=== PATIENT | female | born 1985 | race Caucasian/White ===

== ENCOUNTER 2017-01-26 23:15 | Emergency (ER) | payer OTHER ==
[~2017-01-26] VITALS: Ht 177.8 cm; Wt 63.5 kg
[2017-01-26 23:19] VITALS: BP 126/76
[2017-01-26] MEDS ORDERED: Morphine Sulfate 4mg/ml Inj IVP ONE (23:30)
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
[2017-01-26] MEDS ORDERED: Ketorolac 30mg Inj IV ONE (23:45)
[2017-01-26] MEDS ORDERED: LORazepam Inj 2mg/ml 1ml IV ONE (23:45)
[2017-01-27 00:01] LABS: BASOPHILS % (AUTO) 1.2 % (0.0-2.0); EOSINOPHILS % (AUTO) 3.6 % (0.0-3.0); LYMPHOCYTES % (AUTO) 43.6 % (20.0-45.0); MEAN CORPUSCULAR HEMOGLOBIN 35.1 PG (27.0-31.0); MEAN CORPUSCULAR HGB CONC 35.3 G/DL (32.0-36.0); MEAN CORPUSCULAR VOLUME 99 FL (80-99); MEAN PLATELET VOLUME 6.5 FL (6.5-10.1); MONOCYTES % (AUTO) 6.1 % (1.0-10.0); NEUTROPHILS % (AUTO) 45.6 % (45.0-75.0); PLATELET COUNT 270 K/UL (150-450); RED BLOOD COUNT 3.93 M/UL (4.20-5.40); RED CELL DISTRIBUTION WIDTH 10.4 % (11.6-14.8); WHITE BLOOD COUNT 6.2 K/UL (4.8-10.8)
[2017-01-27 00:03] LABS: ALANINE AMINOTRANSFERASE 92 U/L (3-33); ALBUMIN/GLOBULIN RATIO 1.5 (1.0-2.7); ANION GAP 16 (5-15); ASPARTATE AMINO TRANSFERASE 127 U/L (5-40); CALCIUM 9.2 mg/dL (8.6-10.2); CARBON DIOXIDE 25 mEQ/L (20-30); CHLORIDE 100 mEQ/L (98-107); CREATININE 0.9 mg/dL (0.5-0.9); GLOMERULAR FILTRATION RATE > 60 mL/min (>60); HEMOLYSIS 6; LIPASE 95 U/L (< 60); POTASSIUM 3.3 mEQ/L (3.4-4.9); SODIUM 141 mEQ/L (135-145); TOTAL PROTEIN 7.5 g/dL (6.6-8.7)
[2017-01-27 00:08] LABS: INR 1.1 (0.9-1.1)
[2017-01-27 00:13] LABS: CKMB < 1.5 ng/mL (< 3.8)
[2017-01-27 01:59] VITALS: BP 121/79
[2017-01-27 03:19] VITALS: BP 110/71
[2017-01-27 04:20] VITALS: BP 101/72
--- NOTE | 2017-01-27 09:20 | Diagnostic Imaging Report ---
Indication: Abdominal pain and trauma. Chest pain. Technique: Continuous helical transaxial imaging of the chest, abdomen and pelvis was obtained from the lung bases to the pubic symphysis during intravenous contrast administration. Multiple phases of enhancement obtained. Coronal 2-D reformats were also obtained. Study obtained in a Siemens sensation [address] Total Dose length Product (DLP): [address] Dose Index Volume (CTDIvol): 8.1x3, 0.2, 64.9, 11.5, 14.6 mGy Comparison: None Findings: CT chest: There is no pneumothorax or evidence of lung contusion or effusion. No abnormal fluid collections are identified. There is a fracture of the right seventh rib. This is in the anterior part of the chest. There is a scoliosis of the thoracic spine demonstrated. In the upper upper epigastric region of the abdomen there is ill-defined subcutaneous soft tissue stranding consistent with a contusion injury. Ill-defined low-attenuation demonstrated within the medial segment of the left lobe of the liver consistent with a laceration of the liver. This is probably best demonstrated on coronal reconstructions for example (image [id number]) there is no subcapsular blood or fluid and no free fluid or air identified. The spleen is normal in attenuation. The pancreas is unremarkable. The kidneys and adrenal glands are unremarkable. Uterus is noted. Bladder is unremarkable. There is a 2 cm right ovarian cyst demonstrated. Impression: Acute liver laceration involving the left lobe. No free fluid or free air or evidence of capsular hematoma. Anterior abdominal wall soft tissue contusion. Thoracolumbar scoliosis. Acute right seventh rib fracture [facility] has communicated the preliminary results to the Emergency Department. Their findings are largely concordant with this report. Critical value communication. Findings were discussed via telephone with Dr. Imer Unger 01/27/17, 02:41. The CT scanner at [facility] is accredited by the [employer] and the scans are performed using dose optimization techniques as appropriate to a performed exam including Automatic Exposure control.
--- NOTE | 2017-01-27 11:20 | Diagnostic Imaging Report ---
Indication: Pain Comparison: None Findings: Two views of the left tibia and fibula were obtained. No acute fracture, malalignment, or periosteal reaction are identified. Soft tissues are unremarkable. Impression: Negative examination of the tibia and fibula
--- NOTE | 2017-01-27 11:21 | Diagnostic Imaging Report ---
Indication: Pain 3 views of the left knee were obtained. Findings: No acute fracture, malalignment, or joint effusion are identified. Joint space is relatively well-maintained. Bone mineralization is within normal limits for age. Impression: Negative exam
--- NOTE | 2017-01-27 15:11 | Cardiology Report ---
APPROVED REPORT EKG Measurement Heart [id number] Normal sinus rhythm Cannot rule out Anterior infarct, age undetermined Consider inferior wall ischemia Abnormal ECG
--- NOTE | 2017-01-28 08:45 | Diagnostic Imaging Report ---
Indication: Headache. Head trauma Technique: Contiguous 5 mm thick transaxial imaging of the head obtained in a Siemens Sensation [address] scanner. Soft tissue and bone windows generated. Total Dose length Product (DLP): [address] Dose Index Volume (CTDIvol): 70.38 mGy Comparison: none Findings: The size and configuration of the cortical sulci, basal cisterns, and ventricles are within normal limits for age. There is no mass effect, midline shift, or edema identified. There is no evidence of acute hemorrhage or abnormal intra-axial or extra-axial fluid collections. The bones and soft tissues are unremarkable. Impression: No mass effect, edema or acute bleed. [facility] has communicated the preliminary results to the Emergency Department. Their findings are largely concordant with this report. The CT scanner at [facility] is accredited by the [employer] and the scans are performed using dose optimization techniques as appropriate to a performed exam including Automatic Exposure control.
== END 2017-01-27 04:20 | disposition short-term general hospital (02) ==
LOC: EDBD 23:15 → EMR 23:33
DX: S36.113A Laceration of liver, unspecified degree, initial encounter (principal); S80.212A Abrasion, left knee, initial encounter; S22.31XA Fracture of one rib, right side, initial encounter for closed fracture; V49.9XXA Car occupant (driver) (passenger) injured in unspecified traffic accident, initial encounter; Y92.410 Unspecified street and highway as the place of occurrence of the external cause
CPT/HCPCS: 36415; 70450; 71260; 73562; 73590; 74177; 80053; 80300; 81025; 82550; 82553; 83690; 85025; 85610; 85730; 93005; 96374; 96375; 99284; J1885; J2270; J2405; Q9967